=== PATIENT | female | born 1960 | race African-American/Black ===

== ENCOUNTER 2020-05-16 19:39 | Inpatient (IN) | payer BC ==
[2020-05-16 23:19] VITALS: BMI 42.0
[2020-05-17] MEDS ORDERED: Acetaminophen 325 MG TAB PO PRN (02:11)
--- NOTE | 2020-05-17 02:20 | PDOC.HHP ---
Hospitalist HPI - History of Present Illness History of Present Illness: ADMISSION DATE: 05/16/2020 TIME OF ASSESSMENT: 2300 PRIMARY CARE PHYSICIAN: No PCP CHIEF COMPLAINT: Left-sided numbness HPI: Patient is a 60-year-old female with no significant past medical history. She presented to the ER today for left leg numbness and left facial numbness. She states that the left leg numbness began 3 days ago and the facial numbness began today. She denies any chest pain, shortness of breath, dizziness, nausea, new medications, increased stressors, weakness, facial droop, trauma. No alleviating or worsening factors. Patient has not been seen by physician for couple years. ED COURSE: Vital Signs: Blood pressure 130/75, pulse 64, respiratory rate 16, temp 98.4 oral, no pain, O2 saturation 99% room air Patient was transferred from [place] today for left facial and left leg numbness. She was administered aspirin 324 mg p.o. prior to transfer. She also had a brain CT completed, EKG, and lab work. PAST MEDICAL HISTORY: "Fluid around heart" 2012 PAST SURGICAL HISTORY: 2 sections, left oophorectomy SOCIAL HISTORY: Patient lives at home alone. She denies any alcohol, tobacco, drug use. FAMILY HISTORY: Patient does not recall any family history. ALLERGIES: No known drug allergies CURRENT MEDICATIONS: No home medications Hospitalist ROS - Review of Systems Neurological: reports: numbness (Left leg and left face) All other systems reviewed; all pertinent +/- noted in HPI/Subj - Exam General Appearance: NAD, awake alert Eye: PERRL ENT: normocephalic atraumatic Neck: supple Heart: RRR, no murmur, no gallops, no rubs, normal peripheral pulses Respiratory: CTAB, no wheezes, no rales, no ronchi, normal chest expansion Gastrointestinal: soft, non-tender, non-distended, normal bowel sounds Extremities: no edema Neurological: no focal deficits Neurological - other findings: Cerebellar intact, decreased sensation to left leg and left-sided face Musculoskeletal: normal tone, normal strength, no muscle wasting Psychiatric: normal affect, normal behavior, A&O x 3 Hospitalist Results - Labs Lab results: Laboratory Tests 05/16/20 05/16/20 05/16/20 16:54 16:54 16:54 WBC 3.7 L Hgb 11.7 L Hct 36.8 Sodium 141 Potassium 3.9 Creatinine 0.79 Estimated GFR (MDRD) 90 Glucose 102 Calcium 8.8 AST 17 ALT 17 Troponin I Less than 0.010 - EKG Interpretation EKG: Normal sinus rhythm with diffuse T wave flattening 74 bpm - Radiology Interpretation CT scan - head Status: report reviewed by me Additional Comment: No acute intracranial abnormality Hospitalist H&P A/P - Plan Plan: Left-sided numbness rule out TIA MRI and echo pending Neurology consultation Neurochecks every 4 hours NIH every shift Low-dose statin and aspirin started Hemoglobin A1c, FLP, TSH ordered for a.m. Obesity BMI 42.1 Hemoglobin A1c, FLP, TSH ordered VTE prophylaxis in place with SCDs CODE STATUS: Full Surrogate decision-maker is her mother
[2020-05-17 05:31] LABS: Hemoglobin A1c 5.9 % (4.0-6.0)
[2020-05-17 05:37] LABS: Anion Gap 14 mmol/L (10-20); BUN (Urea Nitrogen) 12 mg/dL (9.8-20.1); Calc. Creatinine Clearance 136 mL/min (70-130); Calcium 8.7 mg/dL (7.8-10.44); Carbon Dioxide 24 mmol/L (22-29); Cardiac Risk 5.5 (Less than 4.5); Chloride 110 mmol/L (98-107); Cholesterol 166 mg/dl (< 200 Desired); Glucose 101 mg/dL (70-105); HDL Cholesterol 30 mg/dL (>60 Neg Risk); LDL Cholesterol, Calculated 117 mg/dL; Potassium 3.9 mmol/L (3.5-5.1); Sodium 144 mmol/L (136-145); Triglycerides 94 mg/dL (Less than 150)
[2020-05-17 06:06] LABS: Eosinophils 5 % (0-10); Lymphocytes 47 % (21-51); MDiff Complete? YES; Mean Corpuscular HGB CONC 33.1 g/dL (32.0-36.0); Mean Corpuscular Hemoglobin 28.9 pg (27.0-31.0); Mean Corpuscular Volume 87.3 fL (78.0-98.0); Monocytes 7 % (0-10); Neutrophil 32 % (42-75); Platelet Count 244 thou/uL (130-400); Platelet Morphology Comment Appears Adequate; RBC Distribution Width 12.3 % (11.5-14.5); Reactive Lymphocytes 8 % (0-10); White Blood Cell (WBC) Count 3.5 thou/uL (4.8-10.8)
[2020-05-17] MEDS: Aspirin 81 mg Enteric Coated Tablet PO SCH (08:55)
--- NOTE | 2020-05-17 09:43 | MRI ---
MRI of thebrain without contrast: 05/17/2020 COMPARISON:None available HISTORY:Transient ischemic attack TECHNIQUE: Multiplanar multisequence MR imaging of thebrain with out contrast Findings:The diffusion weighted imaging demonstrates a subtle punctate focus of restricted diffusion within the posterior aspect of the luciana inferiorly on the right (axial image 34), suspicious for a small area of acute infarction. There is vague associated increased T2 and FLAIR signal in this regio n. There is no midline shift or mass effect. No ventricular enlargement is seen. The axial gradient echo imaging demonstrates no evidence for intracranial hemorrhage. Regional bone marrow signal intensity appears within normal limits. There is subtle heterogeneous signal intensity on the sagittal T1 imaging within the dorsal aspect of the upper cervical cord, likely artifactual in nature. Dedicated cervical spine MRI advised if there are symptoms referable to this region. IMPRESSION:Punctate acute infarction within the inferior posterior aspect of the luciana on the right. A dditional findings as detailed above.
--- NOTE | 2020-05-17 13:14 | PDOC.HOSPP ---
- Subjective Encounter Date: 05/17/20 Encounter Time: 10:00 Subjective: c/o left sided numbness in face and left leg no headache or nausea - Objective Vital Signs & Weight: Vital Signs (12 hours) Temp Pulse Resp BP Pulse Ox 05/17/20 12:00 98 F 51 L 14 143/76 H 97 05/17/20 07:56 97.8 F 69 14 117/62 97 05/17/20 04:00 97.9 F 63 16 107/57 L 98 Weight Weight 230 lb I&O: 05/16/20 05/17/20 05/18/20 06:59 06:59 06:59 Intake Total 660 300 Balance 660 300 Result Diagrams: 05/17/20 04:52 05/17/20 04:52 Hospitalist ROS - Medication Medications: Active Medications Generic Name Dose Route Start Last Admin Trade Name Chrisq PRN Reason Stop Dose Admin Aspirin 81 mg 05/17/20 09:00 05/17/20 08:55 Aspirin 81 Mg Enteric Coated Tablet PO 81 mg DAILY DILIP Administration - Exam General Appearance: awake alert Eye: PERRL, anicteric sclera ENT: no oropharyngeal lesions, moist mucosa Neck: supple, no JVD Heart: RRR, no murmur Respiratory: no wheezes, no rales Gastrointestinal: soft, non-tender, non-distended, normal bowel sounds Extremities: no cyanosis, no edema Neurological: cranial nerve grossly intact Neurological - other findings: no motor deficits, has parasthesias in left face and leg Musculoskeletal: normal tone, normal strength Psychiatric: normal affect, A&O x 3 Hosp A/P (1) Acute CVA (cerebrovascular accident) Code(s): I63.9 - CEREBRAL INFARCTION, UNSPECIFIED Status: Acute (2) Dyslipidemia Code(s): E78.5 - HYPERLIPIDEMIA, UNSPECIFIED Status: Acute (3) Obesity Code(s): E66.9 - OBESITY, UNSPECIFIED Status: Chronic Qualifiers: Obesity classification: adult class 3 (BMI >= 40) Body mass index: BMI 4 0.0-44.9 - Plan MRI shows ac cva in right luciana, pt still has parasthesias in left face and leg areas continue asp, lipitor folic acid and B12 levels, cortisol levels, tsh in am PT/OT eval oral diet to amb as tolerated hemostable
--- NOTE | 2020-05-17 16:43 | CON ---
DATE OF CONSULTATION: 05/17/2020 IMPRESSION: 1. Pontine stroke with left stefani numbness. 2. Hyperlipidemia. PLAN: 1. Aspirin and a statin as you have undertaken. 2. Review echocardiogram when available. HISTORY OF PRESENT ILLNESS: Ms. Dubose is a 60-year-old black female with no significant past history other than a pericardial effusion some years back. She presented with a 4-day history of numbness of the left leg and face. It was not associated with any other deficits. She has never had anything like this in the past. Her MRI confirmed a pontine stroke on the right. Her CT showed no evidence of a bleed. Her lab work was all unremarkable other than a cholesterol ratio 5.5. Her EKG showed normal sinus rhythm. Her symptoms have not changed. PAST MEDICAL HISTORY: Otherwise, negative. ALLERGIES: NONE. SOCIAL HISTORY: No tobacco or alcohol. FAMILY HISTORY: Noncontributory. REVIEW OF SYSTEMS: Ten-system review of systems is otherwise negative. PHYSICAL EXAMINATION: GENERAL: She is an overweight, middle-aged woman, in no distress. VITAL SIGNS: Pulse 64, temperature 98.4, blood pressure 130/75, respirations 16. HEENT: Pupils are equal and reactive. Conjunctivae clear. Oropharynx clear. NECK: Supple. No lymphadenopathy. ABDOMEN: Rotund, nontender. EXTREMITIES: No cyanosis or edema. SKIN: Clear. NEUROLOGIC: She is alert and appropriate. Her speech is fluent and clear. Cranial nerves were intact other than diminished light touch on the left lower face. Motor exam showed equal strength. Sensation in the leg was diminished on the left. Gait was not tested. No abnormal movements were seen. No tremor. Dysmetria was present. SUMMARY: A middle-aged woman with a small vessel stroke in the luciana. Her deficits are fairly mild. I agree with her treatment plan. Job ID: [id number]
[2020-05-17 18:08] LABS: SARS-CoV-2 MS2 Positive; SARS-CoV-2 N Gene Positive; SARS-CoV-2 S Gene Positive; SARS-CoV-2 by NAA DETECTED (NotDetected); SARS-CoV-2 orf1ab Positive
[2020-05-17] MEDS ORDERED: Atorvastatin Calcium 40 MG TAB PO SCH (21:00)
[2020-05-18 05:23] LABS: Anion Gap 13 mmol/L (10-20); BUN (Urea Nitrogen) 11 mg/dL (9.8-20.1); Calc. Creatinine Clearance 142 mL/min (70-130); Calcium 8.4 mg/dL (7.8-10.44); Carbon Dioxide 24 mmol/L (22-29); Chloride 107 mmol/L (98-107); Glucose 100 mg/dL (70-105); Potassium 4.4 mmol/L (3.5-5.1); Sodium 140 mmol/L (136-145)
[2020-05-18 05:30] LABS: Band 2 % (5-11); Eosinophils 2 % (0-10); Hemoglobin 11.1 g/dL (12.0-16.0); Hypochromia SLIGHT = 6-15 cells (100X) (0-5/hpf); Lymphocytes 48 % (21-51); MDiff Complete? YES; Mean Corpuscular HGB CONC 32.7 g/dL (32.0-36.0); Mean Corpuscular Hemoglobin 28.4 pg (27.0-31.0); Mean Corpuscular Volume 86.9 fL (78.0-98.0); Mean Platelet Volume 7.8 fL (7.4-10.4); Monocytes 8 % (0-10); Neutrophil 32 % (42-75); Platelet Count 260 thou/uL (130-400); Platelet Morphology Comment Appears Decreased; RBC Distribution Width 12.3 % (11.5-14.5); Reactive Lymphocytes 8 % (0-10); Red Blood Cell (RBC) Count 3.92 mill/uL (4.20-5.40); White Blood Cell (WBC) Count 4.3 thou/uL (4.8-10.8)
[2020-05-18 05:41] LABS: Thyroid Stimulating Hormone 1.2919 uIU/mL (0.35-4.94)
[2020-05-18] MEDS: Aspirin 81 mg Enteric Coated Tablet PO SCH (08:33)
[2020-05-18 13:03] VITALS: BP 121/67; TEMP 97.9
--- NOTE | 2020-05-19 07:04 | DIS ---
DATE OF ADMISSION: 05/17/2020 DATE OF DISCHARGE: 05/18/2020 DISCHARGE DISPOSITION: Home. PRIMARY DISCHARGE DIAGNOSES: 1. Acute cerebrovascular accident in the right luciana with left-sided paresthesias on the face and worse in the left lower extremity. 2. Obesity with BMI of 42. 3. Dyslipidemia. 4. Folic acid deficiency. 5. COVID-19 virus positive. PROCEDURES DONE DURING HOSPITALIZATION: The patient has had an MRI brain without contrast done, which showed punctate acute infarct in the inferior posterior aspect of the luciana on the right. Echo with 2D Doppler showed EF of 55% to 60%. H and H 11 and 34, MCV 86, platelet count 260. BUN 11, creatinine 0.7, folic acid 6.20, B12 of 540, TSH 1.29. Serum cortisol 14. COVID-19 PCR was positive on 05/17/2020. DISCHARGE MEDICATION: 1. Aspirin 81 mg p.o. daily. 2. Lipitor 40 mg p.o. at bedtime. 3. Folic acid 1 mg p.o. daily. ALLERGIES: NO KNOWN DRUG ALLERGIES. DISCHARGE PLAN: The patient to follow up with Jolanta Mac NP, in 1 week. BRIEF COURSE DURING HOSPITALIZATION: The patient initially got admitted on the with complaints of left-sided paresthesias, specifically left face and left lower extremity paresthesias. She had felt both these areas to be numb. This has been ongoing off and on for last 3 days prior to arrival. In view of this history, the patient was initially placed on observation for possible TIA and later switched over to inpatient status after MRI confirmed acute infarct in the right luciana. She has had complete stroke workup done during her stay. Echo did not reveal any obvious vegetation, but had poor endocardial definition due to the patient's obesity. She remained hemodynamically stable and has been ambulating in the room. The patient tested positive for COVID-19 PCR, but did not have any cough or upper respiratory symptoms. Her neurologic symptoms have remained more or less the same. She needs to continue aspirin and Lipitor. The patient was also given a prescription for folic acid. She will have [facility] with PT and nursing follow her in the house. She was counseled with regard to heart healthy diet and exercise regimen. Please note, I have seen and examined the patient on the day of discharge. Ms. Dubose was evaluated by Dr. Lzao for Neurology as well. Job ID: [id number]
== END 2020-05-18 17:30 | disposition home health service (06) | DRG 64 ==
LOC: ERS 19:39 → 2SE 20:40 → OBSVTOIN 05-17 13:10
PROVIDERS: ADMIT Internal Medicine; ATTEND Internal Medicine
DX: I63.81 Other cerebral infarction due to occlusion or stenosis of small artery (principal); U07.1 COVID-19; Z68.41 Body mass index [BMI] 40.0-44.9, adult; R20.0 Anesthesia of skin; E66.9 Obesity, unspecified; R29.700 NIHSS score 0; E78.5 Hyperlipidemia, unspecified; R20.2 Paresthesia of skin; Z90.721 Acquired absence of ovaries, unilateral
CPT/HCPCS: 36415; 70551; 80048; 80061; 82533; 82607; 82746; 83036; 84443; 85025; 87635; 93306; 99284; G0378; U0003